=== PATIENT | male | born 1955 | race African-American/Black ===

== ENCOUNTER → 2017-02-24 | Outpatient (CLI) | payer OTHER ==
[~2017-02-24] MED LIST: ADVIL PM CAPLE1 EACH PO; CELEXA20 MG PO; MIDODRINE HCL 55 M1 PO; NORCO 5-325 TA1 EACH PO; OMEPRAZOLE40 MG PO; PERCOCET PO; PROAIR HFA8.5 GM INH; SYMBICORT160 MCG/4. INH; TRAMADOL 50 MG50 MG PO
== END | disposition home or self-care (01) ==
LOC: SPEC 10:47
DX: I70.8 Atherosclerosis of other arteries (principal); J45.909 Unspecified asthma, uncomplicated; F32.9 Major depressive disorder, single episode, unspecified; K21.9 Gastro-esophageal reflux disease without esophagitis

== ENCOUNTER → 2017-05-18 | Outpatient (CLI) | payer OTHER ==
[2017-05-18 09:09] LABS: CREATININE 0.8 mg/dL (0.7-1.3)
== END ==
LOC: CAT 08:20
PROVIDERS: Family Medicine
DX: R10.32 Left lower quadrant pain (principal)

== ENCOUNTER → 2017-05-29 | Outpatient (CLI) | payer OTHER | LOC: MRI 06:58 | DX: R19.00 Intra-abdominal and pelvic swelling, mass and lump, unspecified site (principal) ==

== ENCOUNTER → 2017-06-16 | Outpatient (CLI) | payer OTHER ==
[~2017-06-16] VITALS: Ht 175.3 cm; Wt 79.4 kg
[~2017-06-16] MED LIST changes: +CHANTIX1 MG PO; +HYDROCODONE-APA1 TA1 PO; +TRAZODONE HCL50 MG PO
--- NOTE | ~2017-06-16 | S ---
[facility] [place] [place] [address] SURGICAL PATH RPT PROCEDURE Name: IGOR REESE Room #: REG ASHLEY Sloan.Carolyn.#: [id number] Admission: 06/16/17 Date of : 57 Discharge: Report #: [id number] Path Case #: [id number] PATHOLOGY REPORT COLLECTION DATE: 06/16/2017 RECEIVED DATE: 06/16/2017 SUBMITTING PHYS: Dr. Kenny Bearden OTHER PHYS: Dr. Gabriel Mitchell SPECIMEN(S) RECEIVED: A.Bx of polyp at hepatic flexure B.Bx of polyp at sigmoid x2 * * * * * * * * * * * * FINAL DIAGNOSIS: A. Polyp, at hepatic flexure, endoscopic biopsy: - Tubular adenoma. - Negative for high grade dysplasia. B. Polyp, at sigmoid, endoscopic biopsy: - Compatible with a hyperplastic polyp. - Negative for dysplasia. (IUV:db; 06/18/2017) PATHOLOGIST: Мария Thacker M.D. REPORT ELECTRONICALLY SIGNED BY: Мария Thacker M.D. DATE/TIME: 06/18/2017 14:53 * * * * * * * * * * * * GROSS PATHOLOGY: A. Received in formalin labeled "Igor Reese, polyp at hepatic flexure," are 2 segments of askew soft tissue measuring 0.9 x 0.2 x 0.2 cm in aggregate dimensions and ranging from 0.4 to 0.5 cm in maximum dimension. The specimen is submitted entirely in cassette A1. B. Received in formalin labeled "Igor Reese, BX of polyp at sigmoid," are 3 segments of askew soft tissue measuring 0.9 x 0.2 with 0.2 cm in aggregate dimensions and ranging from 0.2 to 0.5 cm in maximum dimension. The specimen is submitted entirely in cassette B1. (ALIZA; 06/17/2017) CLINICAL HISTORY: Screening INITIAL CPT CODE(S): A; 28448 B; [address] [facility] [place] [address] SURGICAL PATH RPT PROCEDURE Name: IGOR REESE Room #: REG [facility] M..#: [id number] Admission: 06/16/17 Date of : 57 Discharge: Report #: [id number] Path Case #: [id number] Professional services performed by [facility] at [place] [address] [address], [place] [address] Technical services performed by [facility] at [address] [place] [address], [address], [place] [address]. [facility] [address] [address] PHONE: [phone] DIRECTOR: Gumaro Hilario M.D. * * * END OF REPORT * * *
== END | disposition home or self-care (01) ==
LOC: GI 07:45
DX: Z12.11 Encounter for screening for malignant neoplasm of colon (principal); D12.3 Benign neoplasm of transverse colon; K63.5 Polyp of colon; K64.8 Other hemorrhoids; K21.9 Gastro-esophageal reflux disease without esophagitis; J45.909 Unspecified asthma, uncomplicated; B19.20 Unspecified viral hepatitis C without hepatic coma; F17.210 Nicotine dependence, cigarettes, uncomplicated; F32.89 Other specified depressive episodes; Z98.890 Other specified postprocedural states; Z95.5 Presence of coronary angioplasty implant and graft
CPT/HCPCS: 62110; 62900

== ENCOUNTER 2018-05-11 13:24 | Inpatient (IN) | payer OTHER ==
[~2018-05-11] VITALS: Ht 175.3 cm; Wt 69.9 kg
--- NOTE | ~2018-05-11 | EKG ---
[address] [address] ELECTROCARDIOGRAM REPORT Name: MARY ANNYUVAL Room #: 215-P ADM IN M.R.#: [id number] Admission: 05/11/18 Attend Phys: Marlon Damico MD Discharge: Date of : 57 Report #: [id number] THIS REPORT FOR: //name// [facility] Test Date: 2018-05-11 Test Time: 20:37:07 Pat Name: YUVAL REESE Department: Room: 215 P Gender: M Uniform Force Captain: Sloan VAUGHAN : 1955 Requested By: Marlon Damico Order Number: [id number] MD: Conor Lauren Measurements Intervals [place] Rate: 63 P: 31 NV: 188 QRS: 30 QRSD: 88 T: 51 QT: 415 QTc: 425 Interpretive Statements Sinus rhythm Right ventricular conduction delay Baseline wander in lead(s) V6 No previous ECG available for comparison Electronically Signed On 05-12-2018 8:07:02 CDT by Conor Lauren [email or web address] <ELECTRONICALLY SIGNED> By: Conor Lauren MD, [facility] 05/12/1807 36 36 Conor Lauren MD, FACC /EPI
--- NOTE | ~2018-05-11 | EKG ---
[place] [address] [facility] [place] [address] ELECTROCARDIOGRAM REPORT Name: DIANACRISTYYUVAL Room #: 215-P ADM IN M.R.#: [id number] Admission: 05/11/18 Attend Phys: Marlon Damico MD Discharge: Date of : 57 Report #: [id number] THIS REPORT FOR: //name// [facility] ED Test Date: 2018-05-11 Test Time: 13:28:24 Pat Name: YUVAL REESE Department: Room: Gender: M Electronic Commerce Specialist: DAPHNECARLOS : 1955 Requested By: Rosy Cheema Order Number: [id number] MD: Conor Lauren Measurements Intervals [place] Rate: 66 P: 56 [place]: 192 QRS: 13 QRSD: 91 T: 56 QT: 400 QTc: 420 Interpretive Statements Sinus rhythm Right ventricular conduction delay No previous ECG available for comparison Electronically Signed On 05-12-2018 8:02:57 CDT by Conor Lauren [email or web address] <ELECTRONICALLY SIGNED> By: Conor Lauren MD, [facility] 05/12/18 0802 1328 1328 Conor Lauren MD, FACC /EPI
[2018-05-11 13:43] VITALS: BP 108/75
[2018-05-11 14:14] LABS: ABSOLUTE NEUTROPHILS 4.2 thou/uL (1.4-8.2); BASOPHILS 0.9 % (0.0-2.0); EOSINOPHILS 2.4 % (0.0-3.0); HEMATOCRIT 42.5 % (42.0-52.0); HEMOGLOBIN 14.7 gm/dL (14.0-18.0); LYMPHOCYTES 35.5 % (24.0-44.0); MCH 30.4 pg (26.0-34.0); MCHC 34.7 g/dL (28.0-37.0); MCV 87.6 fL (80.0-100.0); MONOCYTES 7.9 % (1.0-8.0); PLATELET COUNT 211 thou/uL (150-400); POLYS 53.3 % (36.0-66.0); RBC 4.86 mil/uL (4.50-6.00); RDW 12.6 % (10.5-14.5)
[2018-05-11 14:25] LABS: ANION GAP 6 mmol/L (7-16); BUN 17 mg/dL (7-18); CALCIUM 9.7 mg/dL (8.5-10.1); CHLORIDE 97 mmol/L (98-107); CO2 25 mmol/L (21-32); POTASSIUM 5.1 mmol/L (3.5-5.1); SODIUM 128 mmol/L (136-145)
[2018-05-11 14:28] LABS: APTT 25.5 Seconds (24.5-32.8); INR 1.1; PROTIME 11.3 Seconds (9.3-11.4)
[2018-05-11 14:30] LABS: TROPONIN-I < 0.04 ng/mL (<0.06)
[2018-05-11 14:38] LABS: GLUCOSE 539 mg/dL (74-106)
[2018-05-11] MEDS ORDERED: PLAVIX 75 MG TA75 M1 PO (14:38)
[2018-05-11] MEDS ORDERED: GLUCOPHAGE XR500 MG PO (14:40)
[2018-05-11 15:39] VITALS: BP 98/61
[2018-05-11 15:59] VITALS: BP 99/66
[2018-05-11 16:07] VITALS: BP 101/68
[2018-05-11] MEDS ORDERED: ADVIL PM LIQUI1 EACH PO (17:28)
[2018-05-11] MEDS ORDERED: ASPIR 8181 MG PO (17:34)
[2018-05-11 20:15] VITALS: BP 112/65
[2018-05-11 23:55] VITALS: BP 127/72
[2018-05-12 02:23] LABS: ABSOLUTE NEUTROPHILS 4.3 thou/uL (1.4-8.2); BASOPHILS 0.5 % (0.0-2.0); EOSINOPHILS 2.6 % (0.0-3.0); HEMATOCRIT 40.2 % (42.0-52.0); HEMOGLOBIN 13.7 gm/dL (14.0-18.0); LYMPHOCYTES 39.5 % (24.0-44.0); MCH 29.6 pg (26.0-34.0); MCHC 34.2 g/dL (28.0-37.0); MCV 86.4 fL (80.0-100.0); MONOCYTES 8.2 % (1.0-8.0); PLATELET COUNT 192 thou/uL (150-400); POLYS 49.2 % (36.0-66.0); RBC 4.65 mil/uL (4.50-6.00); RDW 12.7 % (10.5-14.5); WBC 8.7 thou/uL (4.0-11.0)
[2018-05-12 02:38] LABS: BUN 15 mg/dL (7-18); CALCIUM 8.3 mg/dL (8.5-10.1); CHLORIDE 102 mmol/L (98-107); CHOLESTEROL 119 mg/dL (<200); CO2 28 mmol/L (21-32); CREATININE 0.9 mg/dL (0.7-1.3); GLUCOSE 250 mg/dL (74-106); HDL CHOLESTEROL 29 mg/dL (>40); LDL CHOLESTEROL 52 mg/dL (<100); MAGNESIUM 1.7 mg/dL (1.8-2.4); TC:HDL 4.1 Ratio (Not establshd); TRIGLYCERIDE 192 mg/dL (<150); VLDL 38 mg/dL (<40)
[2018-05-12 02:42] LABS: ANION GAP 6 mmol/L (7-16); POTASSIUM 3.8 mmol/L (3.5-5.1); SODIUM 136 mmol/L (136-145)
[2018-05-12 02:43] LABS: SERUM ASSESSMENT Slight Lipemia
[2018-05-12 04:55] VITALS: BP 133/74
[2018-05-12 05:09] LABS: GLYCOHEMOGLOBIN (HGB A1C) 11.3 % (4.8-5.6)
[2018-05-12 07:19] VITALS: BP 153/92
[2018-05-12 09:53] LABS: URINE BILIRUBIN NEGATIVE (Negative); URINE BLOOD NEGATIVE (Negative); URINE CLARITY CLEAR; URINE COLOR YELLOW; URINE GLUCOSE-RANDOM* 2+ (Negative); URINE KETONES NEGATIVE (Negative); URINE LEUKOCYTES-REFLEX NEGATIVE (Negative); URINE NITRITE-REFLEX NEGATIVE (Negative); URINE PROTEIN (DIPSTICK) NEGATIVE (Negative); URINE SPECIFIC GRAVITY 1.015 (1.005-1.035)
[2018-05-12 11:07] VITALS: BP 123/85
[2018-05-12] MEDS ORDERED: GLYBURIDE 5 MG T5 M1 PO (15:06)
[2018-05-12 15:07] VITALS: BP 132/70
[2018-05-12 15:22] VITALS: BP 123/85
== END 2018-05-12 15:56 | disposition home or self-care (01) | DRG 313 ==
LOC: ER 13:24 → EROBS 15:18 → 2N 15:18 → EROBS 16:00 → 2N 16:07 → ENTRNSPT 05-12 15:49 → 2N 05-12 15:56
PROVIDERS: Emergency Medicine; Nurse Practitioner
DX: R07.9 Chest pain, unspecified (principal); E87.1 Hypo-osmolality and hyponatremia; E78.5 Hyperlipidemia, unspecified; I25.10 Atherosclerotic heart disease of native coronary artery without angina pectoris; I10 Essential (primary) hypertension; E11.65 Type 2 diabetes mellitus with hyperglycemia; F17.210 Nicotine dependence, cigarettes, uncomplicated; Z95.5 Presence of coronary angioplasty implant and graft; Z83.3 Family history of diabetes mellitus; Z82.49 Family history of ischemic heart disease and other diseases of the circulatory system; I73.9 Peripheral vascular disease, unspecified; I95.9 Hypotension, unspecified; K21.9 Gastro-esophageal reflux disease without esophagitis; Z71.6 Tobacco abuse counseling
CPT/HCPCS: 10194

== ENCOUNTER → 2019-03-09 | Outpatient (CLI) | payer OTHER ==
[~2019-03-09] MED LIST changes: +ADVIL PM LIQUI1 EACH PO; +ASPIR 8181 MG PO; +GLUCOPHAGE XR500 MG PO; +GLYBURIDE 5 MG T5 M1 PO; +PLAVIX 75 MG TA75 M1 PO
--- NOTE | 2019-03-14 19:48 | SLE ---
[facility] [place] [address] POLYSOMNOGRAPHY STUDY Name: YUVAL REESE Room #: REG DANN Simmons.#: [id number] Admission: 03/09/19 ������������������ Attend Phys: Danny Muhammad MD Discharge: ������������������ Date of : 57 Report #: [id number] THIS REPORT FOR: //name// CC: Danny Johnson MD DATE OF SERVICE: 03/09/2019 ATTENDING PHYSICIAN: Dr. Matheus Johnson. The patient is 63 years old who weighs 168 pounds with a BMI of 24.8. The patient's Empire score was 8. The patient underwent a sleep study performed at [facility]. During the night study, the patient spent 467 minutes in bed and slept for 259 minutes with a low sleep efficiency of 55%. Sleep latency was 73 minutes, which was prolonged with an absent REM sleep. Overall, sleep architecture showed increased stage 1 sleep, reduced stage 2 sleep, absent N3 and absent REM sleep. During the night study, the patient had no apneas and there were 29 hypopneas. The patient's apnea hypopnea index was 6.7 per hour with an absent REM index due to lack of REM sleep. Supine AHI was 12 per hour. EKG monitoring revealed an average heart rate of 72 beats per minute, normal sinus rhythm. No arrhythmias observed. No PLMS seen. Nocturnal oximetry study revealed an average oxygen saturation of 90% with a lowest of 85%. Forty four minutes were spent in oxygen saturation of less than 89%. IMPRESSION: 1. Mild sleep apnea-hypopnea syndrome with an AHI of 6.7 per hour. 2. Nocturnal hypoxia secondary to obstructive sleep apnea and hypoventilation. 3. No clinically significant PLMS. RECOMMENDATIONS: 1. The patient did not meet the criteria for CPAP initiation. If patient has co-morbid conditions, then patients mild sleep apnea can be treated with either oral appliance or CPAP. 2. Avoid ELECTRICAL ENGINEER MEP depressants. 3. The patient's sleep efficiency was reduced and was related to sleep onset and sleep maintenance insomnia. If this is a chronic condition then it can [facility] [address] [place] [address] POLYSOMNOGRAPHY STUDY Name: YUVAL REESE [facility] [id number] Admission: 03/09/19 ������������������ Attend Phys: Danny Muhammad MD Discharge: ������������������ Date of : 57 Report #: [id number] contribute to the patient's daytime somnolence. It should be further evaluated and treated according to the etiology. 4. Caution regarding driving until the patient's hypersomnia is resolved with the above recommendations. ��������������������������������������������� <ELECTRONICALLY SIGNED> ���������������������������������������� By: Danny Muhammad MD ��������������������������������������������� 03/14/19 1948 0736 0853 Danny Muhammad MD /nt
== END ==
LOC: SLEEPLAB 03-03 12:25
DX: G47.33 Obstructive sleep apnea (adult) (pediatric) (principal); R09.02 Hypoxemia

== ENCOUNTER → 2020-01-05 | Outpatient (CLI) | payer OTHER ==
[~2020-01-05] VITALS: Ht 172.7 cm; Wt 70.1 kg
[~2020-01-05] MED LIST changes: +CARVEDILOL25 MG PO; -CELEXA20 MG PO; +CYMBALTA60 MG PO; +FLOMAX0.4 MG PO; -GLUCOPHAGE XR500 MG PO; +GLUCOPHAGE1000 MG PO; +IMDUR 30 MG TAB30 M1 PO; +LIPITOR 20 MG T20 M1 PO; +LUNESTA3 MG PO; +MONTELUKAST SODIUM PO; +NEURONTIN100 MG PO; +RANITIDINE HCL300 MG PO; +TRELEGY ELLIPT1 EACH SUBQ
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
[2020-01-05 15:50] VITALS: BP 100/74
--- NOTE | 2020-01-05 16:22 | NUR ---
Pain Clinic Assessment: 1. History of Osteoarthritis: Not Applicable History of Rheumatoid Arthritis: Not Applicable 2. Height: 5 ft. 8 in. 172.7 cm. Weight: 154.6 lb. oz. 70.126 kg. Patient's BMI: 23.5 3. Vital Signs: BP: 100/74 Pulse: 80 Resp: 14 Temp: 02 Sat: 96 ECG Mon: 4. Pain Intensity: 7 5. Fall Risk: Dizziness: Y Needs help standing or walking: N Fallen in the last 3 months: Y Fall risk comments: 6. Patient on Blood Thinner: Clopidogrel Bisulf(Plavix 7. History of Hypertension: Y 8. Opioid Therapy greater than 6 weeks: Y Opiate Contract Signed: 9. Risk Assessment Tool Provided: 10. Functional Assessment Tool: 11. Recreational Drug Use: Never Drug Type: Tobacco Use: Current Every Day Smoker Tobacco Type: Cigarettes Amount or Packs/day: 3/4 How Many Years: 20 Alcohol Use: No Frequency: Quant:
== END ==
LOC: PAIN 07:05
DX: M54.6 Pain in thoracic spine (principal); M54.9 Dorsalgia, unspecified; M25.511 Pain in right shoulder; M25.512 Pain in left shoulder; G89.29 Other chronic pain; F32.89 Other specified depressive episodes; F41.9 Anxiety disorder, unspecified; G47.00 Insomnia, unspecified; E11.9 Type 2 diabetes mellitus without complications; I10 Essential (primary) hypertension; F17.210 Nicotine dependence, cigarettes, uncomplicated; Z86.59 Personal history of other mental and behavioral disorders; Z98.890 Other specified postprocedural states

== ENCOUNTER → 2020-01-19 | Outpatient (CLI) | payer OTHER ==
[~2020-01-19] VITALS: Ht 172.7 cm; Wt 69.7 kg
[2020-01-19 15:12] VITALS: BP 105/72
--- NOTE | 2020-01-19 15:21 | NUR ---
Pain Clinic Assessment: 1. History of Osteoarthritis: Not Applicable History of Rheumatoid Arthritis: Not Applicable 2. Height: 5 ft. 8 in. 172.7 cm. Weight: 153.6 lb. oz. 69.672 kg. Patient's BMI: 23.4 3. Vital Signs: BP: 105/72 Pulse: 78 Resp: 14 Temp: 02 Sat: 98 ECG Mon: 4. Pain Intensity: 7 5. Fall Risk: Dizziness: N Needs help standing or walking: N Fallen in the last 3 months: N Fall risk comments: 6. Patient on Blood Thinner: Clopidogrel Bisulf(Plavix 7. History of Hypertension: Y 8. Opioid Therapy greater than 6 weeks: Y Opiate Contract Signed: 9. Risk Assessment Tool Provided: 10. Functional Assessment Tool: 11. Recreational Drug Use: Never Drug Type: Tobacco Use: Current Every Day Smoker Tobacco Type: Amount or Packs/day: How Many Years: Alcohol Use: No Frequency: Quant:
--- NOTE | 2020-01-26 14:30 | HPC ---
[facility] [place] [address] PAIN MANAGEMENT CONSULTATION Name: YUVAL REESE Room #: REG DANN LisaBradfordCarolyn.#: [id number] Admission: 01/19/20 Attend Phys: Cody Aldana MD Discharge: Date of : 57 Report #: [id number] THIS REPORT FOR: cc: Gabriel Mitchell James A. DO Morgan, Richard L. MD ~ THIS REPORT FOR: //name// CC: Gabriel Andujar DATE OF SERVICE: 01/19/2020 PROCEDURE NOTE PROCEDURE: Epidural steroid injection L4-L5 under fluoroscopic guidance. INDICATIONS FOR PROCEDURE: Chronic intractable low back pain. Neurogenic claudication. DESCRIPTION OF PROCEDURE: After informed consent, he was taken to the fluoroscopic suite, placed prone, skin prepped with ChloraPrep. Skin anesthetized over the L4-L5 interspace. A 20-gauge Tuohy epidural needle advanced first attempt into the epidural space with loss of resistance technique. There was no blood or CSF aspirated. A 1 mL of Omnipaque was injected. Good spread of dye observed in the epidural space. This was then followed by 3 mL of 0.5% lidocaine mixed with 60 mg of triamcinolone. Slight reduction due to his diabetes. The needle was removed and was taken to recovery room for observation. We will follow up over the next month or so to look for some sustained improvement in his leg pain. <ELECTRONICALLY SIGNED> By: Cody Aldana MD 01/26/20 1430 1601 2308 Cody Aldana MD /nt
== END | disposition home or self-care (01) ==
LOC: PAIN 06:55
DX: M54.5 Low back pain (principal); G89.29 Other chronic pain; M48.062 Spinal stenosis, lumbar region with neurogenic claudication; E11.9 Type 2 diabetes mellitus without complications; F17.200 Nicotine dependence, unspecified, uncomplicated; Z98.890 Other specified postprocedural states; Z79.899 Other long term (current) drug therapy; Z79.891 Long term (current) use of opiate analgesic

== ENCOUNTER 2020-02-17 10:28 | Observation (INO) | payer OTHER ==
[2020-02-17] VITALS (9 sets, daily range): BP systolic 117–140; BP diastolic 81–91
[~2020-02-17] VITALS: Ht 205.7 cm; Wt 67.6 kg
[~2020-02-17 10:28] MED LIST changes: +ASPIR 8181 M1 PO; +CHANTIX0.5 MG PO; +LOTRISONE CREAM15 GM; +TRELEGY ELLIPT1 EACH; +TRULICITY1.5 MG/0.5
[2020-02-17 11:20] LABS: HEMATOCRIT 46.2 % (42.0-52.0); HEMOGLOBIN 15.8 gm/dL (14.0-18.0); MCH 30.7 pg (26.0-34.0); MCHC 34.2 g/dL (28.0-37.0); MCV 89.8 fL (80.0-100.0); RBC 5.15 mil/uL (4.50-6.00); RDW 13.5 % (10.5-14.5); WBC 10.8 thou/uL (4.0-11.0)
[2020-02-17 11:32] LABS: CALCIUM 9.1 mg/dL (8.5-10.1); CREATININE 0.8 mg/dL (0.7-1.3); POTASSIUM 3.9 mmol/L (3.5-5.1)
[2020-02-17 11:33] LABS: PROTIME 10.7 Seconds (9.3-11.4)
[2020-02-17 11:38] LABS: ALBUMIN 3.3 g/dL (3.4-5.0); TOTAL BILIRUBIN 0.5 mg/dL (<0.1-1.0); TOTAL PROTEIN 7.8 g/dL (6.4-8.2)
[2020-02-17] MEDS ORDERED: XARELTO20 MG PO (14:40)
--- NOTE | 2020-02-17 20:56 | NUR ---
arrived post heart cath and left lower extremity stent placement. vital signs monitored as per protocol as well as left groin status checks, left lower extremity pulses all w/o complication. d/c after seen by .
--- NOTE | 2020-02-20 14:29 | CATHLAB ---
[facility] [place] [address] [place] [address] INVASIVE PROCEDURE REPORT Name: YUVAL REESE Room #: 217-P [facility] Jordno Pedersen#: [id number] Admission: 02/17/20 Attend Phys: Enrike Barron MD, Discharge: 02/17/20 Date of : 57 Report #: [id number] THIS REPORT FOR: cc: Gabriel Mitchell James A. DO Mancuso, Gerald M. MD [facility] ~ APPROVED REPORT Study performed: 02/17/2020 14:01:19 Patient Details Patient Status: Out-Patient Room #: The patient is a 64 year-old male Event Personnel Enrike Barron Oracle Application Consultant, Jesu Escamilla RN, Jesu Escamilla RN, Aimee Pearson RTR, RODO Randall, Estuardo Abernathy RTR Monitor Procedures Performed Art Access - L femoral artery* Left Heart Cath w/or w/o Coronaries [id number] [facility] Hemostasis w/ Mynx 71379 Initial Mod Sed Same Phys/QHP Gr5y [id number] Mod Sed Same Phys/QHP Ea [id number] Indication Positive stress test Procedure Narrative A 6F Brite tip sheath was inserted into the LFA^. Coronary angiography was performed using coronary diagnostic catheters. The right coronary system was accessed and visualized with a JR4 catheter. The left coronary system was accessed and visualized with a JL4 catheter. The left ventricle was accessed and visualized with a pigtail catheter. Left ventriculogram was performed in 30 degree projection. Closure device was deployed with a 6 Fr MYNXGRIP 6/7F #[id number]. The patient tolerated the procedure well and there were no complications associated with the procedure. There was no hematoma. Intraoperative Conscious Sedation Sedation start time: 12:28 Case end Time: 14:56 Fentanyl 200 mcg Versed 3 mg [facility] [place] [address] INVASIVE PROCEDURE REPORT Name: YUVAL REESE Room #: 217-P [facility] IN M.R.#: [id number] Admission: 02/17/20 Attend Phys: Enrike Barron, Discharge: 02/17/20 Date of : 57 Report #: [id number] Conscious sedation is a total for peripheral procedure and left heart cath. Fluoro time and dose are a total for peripheral procedure and left heart cath. Omnipaque used 30ml. Contrast total is a total for peripheral procedure and left heart cath. Omnipaque-30ml Fluoro Time: 12.92 minutes Dose: DAP 80912.00 cGycm2 651 mGy Contrast Type and Amount: Visipaque 147 ml Hemodynamics The aortic pressure is 153/82 mmHg with a mean of 110 mmHg. The left ventricular pressure is 150 mmHg with a mean of mmHg. The left ventricular end diastolic pressure is 25 mmHg. PCI Technique Lesion Percutaneous coronary intervention was performed on the Superficial Femoral. Conclusion #1. Normal left ventricular size and systolic function EF 60%. #2 left main mild ostial disease otherwise widely patent giving rise to LAD and circumflex #3 LAD with mild diffuse disease that extends around the apex. No occlusive disease #4 circumflex OM is dominant system with only mild irregularities. #5 nondominant right coronary artery is small and attenuated vessel no indication for intervention. It is supplying a limited area of the inferior wall with very small twiglike vessels. Recommendations and plan continue aggressive risk factor modification. No indication for coronary intervention. See Dr. Marshall's peripheral dictation. <ELECTRONICALLY SIGNED> By: Enrike Barron MD, FACC 02/20/20 1428 1428 1428 Enrike Barron MD, FACC /INF
== END 2020-02-17 20:05 | disposition home or self-care (01) ==
LOC: CATH 10:28 → 2N 16:50
PROVIDERS: Nuclear Medicine Nuclear Cardiology; ADMIT Internal Medicine Cardiovascular Disease
DX: I25.10 Atherosclerotic heart disease of native coronary artery without angina pectoris (principal); I73.9 Peripheral vascular disease, unspecified

== ENCOUNTER → 2020-02-24 | Outpatient (CLI) | payer OTHER ==
[~2020-02-24] MED LIST changes: +XARELTO20 MG PO
== END ==
LOC: SJCVCIMAG 08:58
DX: I73.9 Peripheral vascular disease, unspecified (principal)

== ENCOUNTER → 2020-05-28 | Outpatient (CLI) | payer OTHER | LOC: SJCVCIMAG 09:42 | PROVIDERS: ATTEND Nuclear Medicine Nuclear Cardiology | DX: I65.23 Occlusion and stenosis of bilateral carotid arteries (principal); I70.201 Unspecified atherosclerosis of native arteries of extremities, right leg; M79.605 Pain in left leg; Z95.820 Peripheral vascular angioplasty status with implants and grafts ==

== ENCOUNTER → 2020-06-22 | Outpatient (CLI) | payer OTHER ==
[~2020-06-22] MED LIST changes: +ACETAMINOPHEN325 M1 PO; +COLACE 100 MG100 MG PO; +FAMOTIDINE 40 M40 M1 PO; +IBUPROFEN 200200 M1 PO; +MIRALAX17 GM PO; +OXYCODONE HCL 55 MG PO; +TAMSULOSIN HCL0.4 MG PO; -TRELEGY ELLIPT1 EACH; +TRELEGY ELLIPT1 EACH INH; -TRULICITY1.5 MG/0.5; +TRULICITY1.5 MG/0.5 SUBQ
== END ==
LOC: LAB 11:47 → EDBD 11:47
PROVIDERS: ATTEND Student in an Organized Health Care Education/Training Program
DX: Z01.818 Encounter for other preprocedural examination (principal); Z11.59 Encounter for screening for other viral diseases

== ENCOUNTER 2020-06-26 10:21 | Observation (INO) | payer OTHER ==
[~2020-06-26] VITALS: Ht 175.3 cm; Wt 63.5 kg
[2020-06-26] VITALS (7 sets, daily range): BP systolic 100–133; BP diastolic 60–86
[~2020-06-26 10:21] MED LIST changes: -ACETAMINOPHEN325 M1 PO; -COLACE 100 MG100 MG PO; -IBUPROFEN 200200 M1 PO; -MIRALAX17 GM PO; -OXYCODONE HCL 55 MG PO
[2020-06-26 11:03] LABS: HEMATOCRIT 45.6 % (42.0-52.0); HEMOGLOBIN 15.3 gm/dL (14.0-18.0); MCH 29.1 pg (26.0-34.0); MCHC 33.5 g/dL (28.0-37.0); MCV 86.8 fL (80.0-100.0); RBC 5.25 mil/uL (4.50-6.00); RDW 12.6 % (10.5-14.5); WBC 8.9 thou/uL (4.0-11.0)
[2020-06-26 11:14] LABS: CREATININE 0.7 mg/dL (0.7-1.3); POTASSIUM 4.3 mmol/L (3.5-5.1)
[2020-06-26 11:20] LABS: ALBUMIN 3.8 g/dL (3.4-5.0); TOTAL BILIRUBIN 0.7 mg/dL (0.2-1.0); TOTAL PROTEIN 7.8 g/dL (6.4-8.2)
[2020-06-26] MEDS ORDERED: ACETAMINOPHEN325 M1 PO (12:22)
[2020-06-26] MEDS ORDERED: MIRALAX17 GM PO (12:22)
[2020-06-26] MEDS ORDERED: IBUPROFEN 200200 M1 PO (12:22)
[2020-06-26] MEDS ORDERED: OXYCODONE HCL 55 MG PO (12:22)
[2020-06-26] MEDS ORDERED: COLACE 100 MG100 MG PO (12:22)
--- NOTE | 2020-06-26 16:12 | NUR ---
PT IS HERE FOR [facility] LOCO. CM REVIEWED CHART. PT LIVES IN AN APT WITH HIS . HE REPORTS THEY HAVE ELEVATOR ACCESS SO HE DOES NOT HAVE TO USE STEPS. PT REPORTS HE IS INDEPENDENT WITH AMBULATION. PT STATES HE DOES HAVE A WALKER AT HOME THEY DO NOT USE. PT REPORTS HE HAS NOT HAD HH OR BEEN TO SNF BEFORE. PT REPORTS HE HAS GONE TO OUTPATIENT THERAPY BEFORE BACK IN 2016 BUT UNSURE THE NAME. PT REPORTS HE DOES NOT FEEL HE WILL HAVE ANY NEEDS FROM CM AT DISCHARGE. CM WILL CONTINUE TO FOLLOW TO ASSIST NEEDED.
--- NOTE | 2020-06-26 16:25 | NUR ---
PT ARRIVED TO FLOOR AROUND 1455. ALERT AND ORIENTED. C/O PAIN AND FEELING "BLOATED", REQ KATERIN CRACKERS. TOLERATING CRACKERS, PAIN MEDS GIVEN ORDERED. UP TO TOILET WITH SBA. VOIDING WELL. NO GAS OR BM. PIV SL. 4 SITES ON ABDOMEN C/D/I. SLIGHT AMOUNT OF SWELLING. ABDOMEN SOFT. PT STEADY ON FEET, EDUCATED TO CALL WHEN NEEDS ARISE. CALL LIGHT IN REACH. WILL CONTINUE TO MONITOR
--- NOTE | 2020-06-26 21:59 | NUR ---
Pt takes lunesta qhs for sleep at home. Our pharmacy carries ambien. Pt okay with taking ambien tonight. Dr Beal notified about need for sleep aide.
[2020-06-27 08:29] VITALS: BP 106/70
--- NOTE | 2020-06-27 09:41 | NUR ---
on-going assessment: pt discharged home today, no needs.
--- NOTE | 2020-06-27 10:42 | NUR ---
ASSUMING CARE A&OX4 VSS, PAIN CONTROLLED WITH PAIN MEDS, AMBULATING IN THE ROOM, 4 SURGICAL SITES CDI, PT RECEIVED DISCHARGE INSTRUCTIONS, IV REMOVED, PT TRANSFERRED TO LOBBY BY WHEELCHAIR.
--- NOTE | 2020-06-28 18:06 | PATH ---
[facility] [address] [place] [address] PATHOLOGY RPT PROCEDURE Name: YUVAL REESE Room #: 434-P SARAH Ruvalcaba MSergio#: [id number] Admission: 06/26/20 Date of : [birth year] Discharge: 06/27/20 Report #: [id number] Path Case #: [id number] LCA Accession Number: [id number] . 01 Material submitted: . gallbladder - GALLBLADDER . 01 Clinical history: . Cholelithiasis . 02 Diagnosis: Gallbladder, cholecystectomy: - Mild chronic cholecystitis. - Reactive incidental lymph node. (IUV:pit 06/28/2020) QTP 06/28/2020 1356 Local . 02 Electronically signed: . Мария Thacker MD, Pathologist NPI- [id number] . 01 Gross description: . The specimen is received in formalin, labeled "Yuval Cobbins, gallbladder". Received is an intact gallbladder measuring 6.8 x 2.7 x 1.0 cm in greatest dimensions displaying a pink-roca serosal surface. Opening the specimen reveals a velvety, light askew mucosa with a gallbladder wall thickness of 0.1 cm. Calculi are not present upon filtration of the gallbladder and specimen container, and no masses or lesions are noted grossly. Toward the proximal margin, a single lymph node is identified measuring 0.5 cm in maximum dimensions. Cv/Cvn Cv Tsc System Operator sections, to include the proximal margin and bisected lymph node, are submitted in cassette A1. (CAA; 06/27/2020) QAC/QAC 06/28/2020 1355 Local . 02 Pathologist provided ICD-10: K81.1 . 02 CPT . 273734 Specimen Comment: A courtesy copy of this report has been sent to [phone] Specimen Comment: [phone] Specimen Comment: Report sent to / DR BAZAN Performed at: [address], [place] [id number] [place] [address] PATHOLOGY RPT PROCEDURE Name: YUVAL REESE Room #: 434-P SARAH Pedersen#: [id number] Admission: 06/26/20 Date of : [birth year] Discharge: 06/27/20 Report #: [id number] Path Case #: [id number] MD Vick House MD Phone: [phone] Performed at: [address] [id number] MD Мария Thacker MD Phone: [phone]
== END 2020-06-27 09:15 | disposition home or self-care (01) ==
LOC: OR 10:21 → 4S 12:44 → EDSTATUS 12:44 → OR 15:19 → 4S 15:19 → OR 15:38 → EDBD 06-27 09:15 → 4S 06-27 09:15 → OR 06-27 09:15 → 4S 06-27 09:15
PROVIDERS: ADMIT Surgery; ATTEND Surgery
DX: K81.9 Cholecystitis, unspecified (principal); K74.60 Unspecified cirrhosis of liver; E11.9 Type 2 diabetes mellitus without complications; E78.5 Hyperlipidemia, unspecified; F17.290 Nicotine dependence, other tobacco product, uncomplicated; Z79.899 Other long term (current) drug therapy
CPT/HCPCS: 10102; 50010; 50101; 50249; 50411; 50555; 50558; 51489; 52265; 52266; 52287; 53307; 53310; 53312; 54022; 54118; 55245; 56462; 56525; 56526; 62110; 62900; 70005

== ENCOUNTER → 2020-07-04 | Outpatient (CLI) | payer OTHER ==
[~2020-07-04] MED LIST changes: +ACETAMINOPHEN325 M1 PO; +COLACE 100 MG100 MG PO; +IBUPROFEN 200200 M1 PO; +MIRALAX17 GM PO; +OXYCODONE HCL 55 MG PO
[2020-07-04 10:59] LABS: BASOPHILS 0.7 % (0.0-2.0); HEMATOCRIT 46.8 % (42.0-52.0); HEMOGLOBIN 15.5 gm/dL (14.0-18.0); LYMPHOCYTES 25.4 % (24.0-44.0); MCH 28.8 pg (26.0-34.0); MCV 87.4 fL (80.0-100.0); MONOCYTES 10.9 % (1.0-8.0); PLATELET COUNT 281 thou/uL (150-400); RBC 5.36 mil/uL (4.50-6.00); WBC 9.9 thou/uL (4.0-11.0)
[2020-07-04 11:31] LABS: ALBUMIN 3.8 g/dL (3.4-5.0); CALCIUM 9.3 mg/dL (8.5-10.1); CREATININE 0.7 mg/dL (0.7-1.3); POTASSIUM 4.5 mmol/L (3.5-5.1); TOTAL BILIRUBIN 0.6 mg/dL (0.2-1.0); TOTAL PROTEIN 7.9 g/dL (6.4-8.2)
== END ==
LOC: CAT 10:28
PROVIDERS: ATTEND Nurse Practitioner
DX: I70.0 Atherosclerosis of aorta (principal); R19.5 Other fecal abnormalities; M48.07 Spinal stenosis, lumbosacral region; N43.3 Hydrocele, unspecified; Z90.49 Acquired absence of other specified parts of digestive tract

== ENCOUNTER 2020-07-09 14:53 | Emergency (ER) | payer OTHER ==
[~2020-07-09] VITALS: Ht 175.3 cm; Wt 63.5 kg
[2020-07-09 16:32] LABS: HEMATOCRIT 42.7 % (42.0-52.0); HEMOGLOBIN 14.3 gm/dL (14.0-18.0); MCH 28.7 pg (26.0-34.0); MCHC 33.4 g/dL (28.0-37.0); MCV 85.9 fL (80.0-100.0); PLATELET COUNT 317 thou/uL (150-400); RBC 4.96 mil/uL (4.50-6.00); RDW 12.9 % (10.5-14.5); WBC 10.9 thou/uL (4.0-11.0)
[2020-07-09 16:41] LABS: ANION GAP 7 mmol/L (7-16); BUN 12 mg/dL (7-18); CALCIUM 8.6 mg/dL (8.5-10.1); CHLORIDE 99 mmol/L (98-107); CO2 28 mmol/L (21-32); CREATININE 0.7 mg/dL (0.7-1.3); GLUCOSE 89 mg/dL (74-106); POTASSIUM 4.7 mmol/L (3.5-5.1); SODIUM 134 mmol/L (136-145)
[2020-07-09 16:50] LABS: TROPONIN-I <0.06 ng/mL (<0.06)
[2020-07-09 17:32] LABS: ABSOLUTE NEUTROPHILS 8.9 thou/uL (1.4-8.2); PLATELET ESTIMATE NORMAL
[2020-07-09 17:59] VITALS: BP 122/74
--- NOTE | 2020-07-10 09:30 | EKG ---
[facility] [place] [address] ELECTROCARDIOGRAM REPORT Name: YUVAL REESE Room #: DEP [facility]..#: [id number] Admission: 07/09/20 Attend Phys: Discharge: 07/09/20 Date of : [birth year] Report #: [id number] THIS REPORT FOR: cc: Gabriel Mitchell James A. DO Lundgren, Craig H. MD [facility] THIS REPORT FOR: //name// [facility] ED Test Date: 2020-07-09 Test Time: 17:28:07 Pat Name: YUVAL REESE Department: Room: Gender: News Internship: Laura : 1956-08-30 Requested By: Kelley Benson Order Number: [id number] MD: Conor Lauren Measurements Intervals [place] Rate: 88 P: 72 LA: 151 QRS: 14 QRSD: 80 T: 70 QT: 326 QTc: 395 Interpretive Statements Sinus rhythm Normal tracing Compared to ECG 05/11/2018 20:37:07 No significant changes Electronically Signed On 07-10-2020 9:30:41 CDT by Conor Lauren [email or web address] <ELECTRONICALLY SIGNED> By: Conor Lauren MD, FACC 07/10/20 0930 1728 1728 Conor Lauren MD, [facility] /EPI
== END 2020-07-09 17:59 | disposition home or self-care (01) ==
LOC: ER 14:53
PROVIDERS: Physician Assistant
DX: R05 Cough (principal); R50.9 Fever, unspecified; E11.9 Type 2 diabetes mellitus without complications; I25.10 Atherosclerotic heart disease of native coronary artery without angina pectoris; K21.9 Gastro-esophageal reflux disease without esophagitis; F17.210 Nicotine dependence, cigarettes, uncomplicated; Z79.899 Other long term (current) drug therapy; Z20.828 Contact with and (suspected) exposure to other viral communicable diseases

== ENCOUNTER → 2020-07-17 | Outpatient (CLI) | payer OTHER | LOC: CAT 08:30 | PROVIDERS: ATTEND Family Medicine | DX: R91.8 Other nonspecific abnormal finding of lung field (principal); J98.4 Other disorders of lung ==

== ENCOUNTER → 2020-07-23 | Outpatient (CLI) | payer OTHER | LOC: LAB 12:27 | PROVIDERS: ATTEND Pediatrics | DX: Z01.812 Encounter for preprocedural laboratory examination (principal); Z20.828 Contact with and (suspected) exposure to other viral communicable diseases ==

== ENCOUNTER → 2020-07-27 | Outpatient (CLI) | payer OTHER ==
[~2020-07-27] MED LIST changes: +COLACE100 MG PO
--- NOTE | ~2020-07-27 | PFR/MVV ---
[facility] [place] [address] PULMONARY FUNCTION MVV/REPORT Name: YUVAL REESE Room #: REG DANN Pedersen#: [id number] Admission: 07/27/20 Attend Phys: Matheus Johnson MD Discharge: Date of : [birth year] Report #: [id number] THIS REPORT FOR: //name// >> SPIROMETRY: (BTPS) Height: 69 in cm Weight: 136 lbs kg Exam Date: 07/27/20 PRE-RX POST-RX PRED BEST %PRED BEST %PRED %CHG FVC LITERS . 4.42 . 3.53 . 80 . 3.52 . 80 . -0 FEV1 LITERS . 3.10 . 1.59 . 51 . 1.67 . 54 . 5 FEV1/FVC % . 71 . 45 . 64 . 48 . 67 . 6 WCO79-53% L/Sec . 2.97 . 0.34 . 11 . 0.41 . 14 . 22 PEF L/SEC . 8.31 . 5.42 . 65 . 4.35 . 52 . -20 FEF50/FIF50 UNITLESS . <1.00 . 0.22 . . 0.46 . . 110 MVV L/Min . 134 . 49 . 36 f 1/Min . . 140 . >> LUNG VOLUMES: (BTPS) PRE-RX POST-RX PRED AVG %PRED AVG %PRED %CHG VC Liters . 4.42 . 3.53 . 80 . . . TLC Liters . 6.39 . 6.13 . 96 . . . RV Liters . 2.34 . 2.60 . 111 . . . RV/TLC % . 38 . 42 . 112 . . . FRC [address] Liters . 3.97 . 3.28 . 83 . . . FRC N2 Liters . 3.97 . . . . . ERV Liters . 1.49 . 0.68 . 46 . . . IC Liters . 2.99 . 1.49 . 50 . . . >> DIFFUSION: DLCO ml/Min/mmHg . 19.2 . 7.6 . 40 . . . DL Gretchen ml/Min/mmHg . 19.2 . 7.6 . 40 . . . DLCO/VA ml/Min/mmHg . 3.69 . 2.46 . 67 . . . VA Liters . 6.90 . 3.08 . 45 . . . COMMENTS: COMMENTS: >> RESISTANCE: [facility] [address] [place] [address] PULMONARY FUNCTION MVV/REPORT Name: YUVAL REESE Room #: REG [facility] Anita.#: [id number] Admission: 07/27/20 Attend Phys: Matheus Johnson MD Discharge: Date of : [birth year] Report #: [id number] PRE-RX PRED AVG %PRED Raw Total cmH20/L/Sec . . 11.83 . Raw Insp cmH20/L/Sec . . 11.66 . Raw Exp cmH20/L/Sec . . 13.79 . Raw cmH20/L/Sec . 1.10 . 11.23 . 1018 Gaw L/Sec/cmH20 . 0.962 . 0.089 . 9 sRaw cmH20 Sec . 4.38 . 40.12 . 917 sGaw l/cmH20 Sec . 0.229 . 0.025 . 11 Vtq Liters . . 3.57 . # = OUTSIDE 95% CONFIDENCE INTERVAL CALIBRATION: PRED: 3.00 ACTUAL: EXP 3.01 INSP 3.02 [facility]-OL10-06 [facility]-05 N-1804-4 >> INTERPRETATION/IMPRESSION: CC: Gabriel Johnson DATE OF SERVICE: 07/27/2020 PULMONARY FUNCTION STUDY SPIROMETRY: FEV1 is 1.59 liters (51% predicted), FVC is 3.53 liters (80%), FEV1/FVC ratio is 45%. Post-bronchodilator therapy with no significant change. Vital capacity 3.53 liters (80%). LUNG VOLUMES: Total lung capacity is 6.13 liters (96%). RV is 2.60 liters (111). Diffusing capacity is 40%. IMPRESSION: Pulmonary function studies are consistent with a moderate severe obstructive airflow defect with no significant response to bronchodilator therapy. There is no air trapping or hyperinflation. Diffusing capacity is severely decreased. By: Matheus Johnson MD /nt
== END ==
LOC: CAT 08:27
PROVIDERS: ATTEND Pediatrics
DX: J84.10 Pulmonary fibrosis, unspecified (principal); J98.4 Other disorders of lung; R91.8 Other nonspecific abnormal finding of lung field

== ENCOUNTER → 2020-08-01 | Outpatient (CLI) | payer OTHER ==
[~2020-08-01] MED LIST changes: -COLACE100 MG PO
--- NOTE | ~2020-08-01 | PFR/MVV ---
[facility] [place] [address] PULMONARY FUNCTION MVV/REPORT Name: YUVAL REESE Room #: REG ASHLEY Troy.#: [id number] Admission: 08/01/20 Attend Phys: Matheus Johnson MD Discharge: Date of : [birth year] Report #: [id number] THIS REPORT FOR: //name// >> SPIROMETRY: (BTPS) Height: in cm Weight: lbs kg Exam Date: PRE-RX POST-RX PRED BEST %PRED BEST %PRED %CHG FVC LITERS . . . . . . FEV1 LITERS . . . . . . FEV1/FVC % . . . . . . BAI81-13% L/Sec . . . . . . PEF L/SEC . . . . . . FEF50/FIF50 UNITLESS . . . . . . MVV L/Min . . . f 1/Min . . . >> LUNG VOLUMES: (BTPS) PRE-RX POST-RX PRED AVG %PRED AVG %PRED %CHG VC Liters . . . . . . TLC Liters . . . . . . RV Liters . . . . . . RV/TLC % . . . . . . FRC PL Liters . . . . . . FRC N2 Liters . . . . . . ERV Liters . . . . . . IC Liters . . . . . . >> DIFFUSION: DLCO ml/Min/mmHg . . . . . . DL Gretchen ml/Min/mmHg . . . . . . DLCO/VA ml/Min/mmHg . . . . . . VA Liters . . . . . . COMMENTS: COMMENTS: >> RESISTANCE: [facility] [address] [place] [address] PULMONARY FUNCTION MVV/REPORT Name: YUVAL REESE Room #: REG DANN Simmons#: [id number] Admission: 08/01/20 Attend Phys: Matheus Johnson MD Discharge: Date of : [birth year] Report #: [id number] PRE-RX PRED AVG %PRED Raw Total cmH20/L/Sec . . . Raw Insp cmH20/L/Sec . . . Raw Exp cmH20/L/Sec . . . Raw cmH20/L/Sec . . . Gaw L/Sec/cmH20 . . . sRaw cmH20 Sec . . . sGaw l/cmH20 Sec . . . Vtq Liters . . . # = OUTSIDE 95% CONFIDENCE INTERVAL CALIBRATION: PRED: 3.00 ACTUAL: EXP 3.01 INSP 3.02 [facility]-OL10- [facility]-- N-1804-4 >> INTERPRETATION/IMPRESSION: CC: Gabriel Johnson MD DATE OF SERVICE: 08/01/2020 Spirometric examination reveals severe airflow obstruction. Following bronchodilators, there was no significant bronchodilator response. Possible small airways disease is suggested. Lung volumes are normal. Diffusion capacity is markedly reduced, corrected for alveolar volume, it remained moderately reduced. Flow volume loop is consistent with airflow obstruction. IMPRESSION: Severe airflow obstruction. Diffusion capacity is reduced. By: Rocky Valdivia MD /nt
== END ==
LOC: PET 12:53
PROVIDERS: ATTEND Pediatrics
DX: J43.9 Emphysema, unspecified (principal); R91.1 Solitary pulmonary nodule; M79.89 Other specified soft tissue disorders; J98.4 Other disorders of lung

== ENCOUNTER → 2020-08-16 | Outpatient (CLI) | payer OTHER ==
[2020-08-16 13:36] LABS: CREATININE 0.6 mg/dL (0.7-1.3)
== END ==
LOC: CAT 12:39
PROVIDERS: ATTEND Pediatrics
DX: R91.1 Solitary pulmonary nodule (principal); R91.8 Other nonspecific abnormal finding of lung field

== ENCOUNTER → 2020-08-24 | Outpatient (CLI) | payer OTHER ==
[~2020-08-24] MED LIST changes: +COLACE100 MG PO
== END ==
LOC: LAB 13:34
PROVIDERS: ATTEND Pediatrics
DX: Z01.812 Encounter for preprocedural laboratory examination (principal); Z20.828 Contact with and (suspected) exposure to other viral communicable diseases

== ENCOUNTER 2020-08-29 07:02 | Day surgery (SDC) | payer OTHER ==
[2020-08-29 07:30] VITALS: BP 104/62
--- NOTE | 2020-08-31 14:09 | PATH ---
[facility] [address] [place] [address] PATHOLOGY RPT PROCEDURE Name: IGOR REESE Room #: DEP [facility] M.R.#: [id number] Admission: 08/29/20 Date of : [birth year] Discharge: 08/29/20 Report #: [id number] Path Case #: [id number] LCA Accession Number: [id number] . 01 Material submitted: . lung - DANIEL TISSUE BIOPSY. Modifiers: left, upper . 01 Clinical history: . LUNG NODULE . 02 Diagnosis: Lung, left upper lobe tissue, biopsy: - Benign alveolated lung parenchyma as well as bronchial fragments. - Reactive changes along with abundant pigmented macrophages. - Negative for malignancy. . (IUV:mml; 08/31/2020) QLM 08/31/2020 1230 Local . 02 Electronically signed: . Мария Thacker MD, Pathologist NPI- [id number] . 01 Gross description: . The specimen is received in formalin, labeled "Magui, IgorDANIEL tissue biopsy" and consists of multiple fragments of askew-brown tissue measuring 0.6 x 0.5 x 0.2 cm in aggregate which are entirely submitted in A1. (SDY; 08/30/2020) SYU/SYU 08/30/2020 1533 Local . 02 Pathologist provided ICD-10: R91.1 . 02 CPT . 578114 Specimen Comment: A courtesy copy of this report has been sent to [phone] Specimen Comment: [phone] Specimen Comment: Report sent to / DR BAZAN Performed at: [address] [address], [place] [id number] MD Vick House MD Phone: [phone] Performed at: [address] [id number] MD Мария Thacker MD Phone: [phone]
--- NOTE | 2020-08-31 17:07 | PATH ---
[facility] [address] [place] [address] PATHOLOGY RPT PROCEDURE Name: YUVAL REESE Room #: DEP [facility] M.R.#: [id number] Admission: 08/29/20 Date of : [birth year] Discharge: 08/29/20 Report #: [id number] Path Case #: [id number] Note LCA Accession Number: [id number] TESTS RESULT FLAG UNITS REF RANGE LAB Clinician Provided Cytology Information No. of containers..01 Other (Miscellaneous) Source: BAL DANIEL DIAGNOSIS: BAL DANIEL NEGATIVE FOR MALIGNANT EPITHELIAL CELLS. REACTIVE BRONCHIAL CELLS ARE PRESENT. PULMONARY MACROPHAGES (DUST CELLS) ARE PRESENT. Pathologist ICD10: 02 R91.1 Signed out by: 02 Мария Thacker MD, Pathologist NPI- [id number] Performed by: 01 Lucy Ponce Rag Cutting Machine Operator ([facility]) Gross description: 01 7.5ML, PINK, 1 TP /LCS 08/30/2020 1438 Local FLAG LEGEND: L-Low Normal,H-High Normal,LL-Alert Low,HH-Alert High <-Panic Low,>-Panic High,A-Abnormal,AA-Critical Abnormal Performed at: [address] [place] [address] Vick House MD, [address] [address] Мария Thacker MD, Specimen Comment: A courtesy copy of this report has been sent to [phone] Specimen Comment: [phone] Specimen Comment: Report sent to / DR BAZAN Performed at: [address], [place], [place] [id number] MD Vick House MD Phone: [phone]
--- NOTE | 2020-08-31 17:07 | PATH ---
[facility] [address] [place] [address] PATHOLOGY RPT PROCEDURE Name: YUVAL REESE Room #: DEP [facility] M.R.#: [id number] Admission: 08/29/20 Date of : [birth year] Discharge: 08/29/20 Report #: [id number] Path Case #: [id number] Note LCA Accession Number: [id number] TESTS RESULT FLAG UNITS REF RANGE LAB Clinician Provided Cytology Information No. of containers..01 Other (Miscellaneous) Source: BRUSH TIP DANIEL DIAGNOSIS: 02 BRUSH TIP DANIEL NEGATIVE FOR MALIGNANT EPITHELIAL CELLS. REACTIVE BRONCHIAL CELLS ARE PRESENT. PULMONARY MACROPHAGES (DUST CELLS) ARE PRESENT. SPECIMEN CONSISTS OF HEMOSIDERIN-LADEN MACROPHAGES AND BLOOD. SCANT CELLULARITY. ABUNDANT RED BLOOD CELLS ARE PRESENT. Pathologist ICD10: 02 R91.1 Signed out by: 02 Мария Thacker MD, Pathologist NPI- [id number] Performed by: Jamee Ponce Pipe Installer ([facility]) Gross description: 01 1 TP /LCS 08/30/2020 1421 Local FLAG LEGEND: L-Low Normal,H-High Normal,LL-Alert Low,HH-Alert High <-Panic Low,>-Panic High,A-Abnormal,AA-Critical Abnormal Performed at: [address] [place] [address] Vick House MD, [address] [address] Мария Thacker MD, Specimen Comment: A courtesy copy of this report has been sent to [phone] Specimen Comment: [phone] Specimen Comment: Report sent to / DR BAZAN Performed at: [address], [place], [place] [id number] [address] [address] PATHOLOGY RPT PROCEDURE Name: YUVAL REESE Room #: DEP [facility] Nuvia#: [id number] Admission: 08/29/20 Date of : [birth year] Discharge: 08/29/20 Report #: [id number] Path Case #: [id number] MD Vick House MD Phone: [phone]
== END 2020-08-29 11:45 | disposition home or self-care (01) ==
LOC: TBA 07:02 → OR 07:02 → PUL 10:04 → OR 11:45
PROVIDERS: ATTEND Pediatrics
DX: R91.8 Other nonspecific abnormal finding of lung field (principal); R91.1 Solitary pulmonary nodule; E11.9 Type 2 diabetes mellitus without complications; I73.9 Peripheral vascular disease, unspecified; Z98.890 Other specified postprocedural states; Z79.899 Other long term (current) drug therapy
CPT/HCPCS: 62110; 62900; 70005

== ENCOUNTER → 2020-09-04 | Outpatient (CLI) | payer OTHER | LOC: SJCVCIMAG 07:24 | PROVIDERS: ATTEND Nuclear Medicine Nuclear Cardiology | DX: I73.9 Peripheral vascular disease, unspecified (principal); F17.200 Nicotine dependence, unspecified, uncomplicated; Z95.820 Peripheral vascular angioplasty status with implants and grafts ==

== ENCOUNTER → 2020-09-24 | Outpatient (CLI) | payer OTHER ==
[~2020-09-24] VITALS: Ht 175.3 cm; Wt 63.1 kg
[2020-09-24 13:56] VITALS: BP 103/63
== END | disposition home or self-care (01) ==
LOC: PAIN 06:53
PROVIDERS: ATTEND Anesthesiology Pain Medicine
DX: M54.16 Radiculopathy, lumbar region (principal); G89.29 Other chronic pain; I10 Essential (primary) hypertension; E11.9 Type 2 diabetes mellitus without complications; F17.210 Nicotine dependence, cigarettes, uncomplicated; Z98.890 Other specified postprocedural states; Z79.899 Other long term (current) drug therapy

== ENCOUNTER → 2020-10-17 | Outpatient (CLI) | payer OTHER ==
[2020-10-17 14:06] LABS: CREATININE 0.7 mg/dL (0.7-1.3)
== END ==
LOC: LAB 12:58 → MRI 12:58
PROVIDERS: ATTEND Nurse Practitioner
DX: Z01.812 Encounter for preprocedural laboratory examination (principal); R19.00 Intra-abdominal and pelvic swelling, mass and lump, unspecified site

== ENCOUNTER → 2020-10-18 | Outpatient (CLI) | payer OTHER | LOC: MRI 13:20 | PROVIDERS: ATTEND Nurse Practitioner | DX: R59.0 Localized enlarged lymph nodes (principal); K22.8 Other specified diseases of esophagus; M79.89 Other specified soft tissue disorders; Z90.49 Acquired absence of other specified parts of digestive tract; Z98.890 Other specified postprocedural states ==

== ENCOUNTER → 2020-11-15 | Outpatient (CLI) | payer OTHER ==
[~2020-11-15] VITALS: Ht 175.3 cm; Wt 59.0 kg
[2020-11-15 09:40] LABS: ABSOLUTE NEUTROPHILS 6.5 thou/uL (1.4-8.2); BASOPHILS 0.6 % (0.0-2.0); EOSINOPHILS 1.5 % (0.0-3.0); HEMATOCRIT 46.8 % (42.0-52.0); HEMOGLOBIN 15.6 gm/dL (14.0-18.0); LYMPHOCYTES 29.2 % (24.0-44.0); MCH 28.4 pg (26.0-34.0); MCHC 33.4 g/dL (28.0-37.0); MCV 85.1 fL (80.0-100.0); MONOCYTES 9.2 % (1.0-8.0); PLATELET COUNT 256 thou/uL (150-400); POLYS 59.5 % (36.0-66.0); RDW 14.3 % (10.5-14.5)
[2020-11-15 09:57] LABS: ALBUMIN 3.5 g/dL (3.4-5.0); CALCIUM 9.6 mg/dL (8.5-10.1); CREATININE 0.7 mg/dL (0.7-1.3); DIRECT BILIRUBIN 0.2 mg/dL (<0.1-0.2); POTASSIUM 4.4 mmol/L (3.5-5.1); TOTAL BILIRUBIN 0.4 mg/dL (0.2-1.0); TOTAL PROTEIN 7.7 g/dL (6.4-8.2)
[2020-11-15 09:58] LABS: APTT 31.3 Seconds (24.5-32.8); INR 1.4; PROTIME 14.4 Seconds (9.3-11.4)
[2020-11-15 10:25] VITALS: BP 117/66
--- NOTE | 2020-11-15 13:24 | NUR ---
PORTABLE CHEST XRAY DONE.
[2020-11-15 14:26] VITALS: BP 135/68
--- NOTE | 2020-11-20 16:06 | PATH ---
[facility] [address] [place] [address] PATHOLOGY RPT PROCEDURE Name: YUVAL REESE Room #: REG DANN MIsabel.#: [id number] Admission: 11/15/20 Date of : [birth year] Discharge: Report #: [id number] Path Case #: [id number] LCA Accession Number: [id number] . 01 Material submitted: . lung - LUNG BIOPSY . 02 Diagnosis: Lung, "nodule", needle core biopsy: - Rare non-necrotizing granulomata identified amidst lymph node tissue with reactive changes. - No lung parenchyma/alveolar parenchyma or bronchial epithelium present. LBQ 11/19/2020 1146 Local . 02 Comment: AFB and GMS fungal special stains are ordered on block A1 and the results of these will be reported in an addendum to follow. (IUV/db; 11/19/2020) . 02 Addendum: . Acid fast bacillus and Gomori methenamine silver stains performed on A1 are negative for mycobacterial as well as fungal elements, respectively. (IUV:pit 11/20/2020) . Professional services performed by [facility] at [facility], [address] [place] [address]. Technical services performed by [facility] at [address] [place] [address], [address], [place] [address]. MBR/11/20/2020 Addendum Electronically Signed by Мария Thacker MD, Pathologist . 02 Electronically signed: . Мария Thacker MD, Pathologist NPI- [id number] . 01 Gross description: . The specimen is received in formalin, labeled "Yuval Reese". The container is not labeled with the specimen site. Per the requisition, the specimen site is "lung biopsy". Received are 3 delicate needle cores of askew tissue measuring between 0.7 cm and 1.2 cm in length and 0.1 cm each in diameter which are entirely submitted in A1. (SDY; 11/16/2020) SYU/SYU 11/16/2020 132 Local . 02 Pathologist provided ICD-10: R91.1 . 02 CPT . [facility] [address] [place] [address] PATHOLOGY RPT PROCEDURE Name: YUVAL REESE Room #: REG CLI Nuvia#: [id number] Admission: 11/15/20 Date of : [birth year] Discharge: Report #: [id number] Path Case #: [id number] Specimen Comment: A courtesy copy of this report has been sent to [phone] Specimen Comment: [phone] Specimen Comment: Report sent to / DR BAZAN Specimen Comment: A duplicate report has been generated due to demographic updates. Performed at: 01 [facility] [address] [address], [place] [id number] MD Arpan Henderson MD Phone: [phone] Performed at: [address] [facility] [address] [id number] MD Мария Thacker MD Phone: [phone]
== END | disposition home or self-care (01) ==
LOC: ULTRA 09:03
PROVIDERS: ATTEND Family Medicine
DX: R59.0 Localized enlarged lymph nodes (principal); F41.9 Anxiety disorder, unspecified; J44.9 Chronic obstructive pulmonary disease, unspecified; E11.9 Type 2 diabetes mellitus without complications; I25.10 Atherosclerotic heart disease of native coronary artery without angina pectoris; K21.9 Gastro-esophageal reflux disease without esophagitis; E78.5 Hyperlipidemia, unspecified; G47.33 Obstructive sleep apnea (adult) (pediatric); B19.20 Unspecified viral hepatitis C without hepatic coma; N40.0 Benign prostatic hyperplasia without lower urinary tract symptoms; F17.210 Nicotine dependence, cigarettes, uncomplicated; Z83.3 Family history of diabetes mellitus; Z98.890 Other specified postprocedural states; Z79.899 Other long term (current) drug therapy

== ENCOUNTER → 2021-01-28 | Outpatient (CLI) | payer OTHER ==
[~2021-01-28] MED LIST changes: +CHANTIX1 EACH PO; +NORCO7.5 PO; +SINGULAIR 10 MG10 M1 PO
== END ==
LOC: LAB 12:14
PROVIDERS: ATTEND Student in an Organized Health Care Education/Training Program
DX: Z01.812 Encounter for preprocedural laboratory examination (principal); Z20.822 Contact with and (suspected) exposure to COVID-19

== ENCOUNTER → 2021-02-28 | Outpatient (CLI) | payer OTHER | LOC: RAD 13:29 | PROVIDERS: ATTEND Pediatrics | DX: J43.9 Emphysema, unspecified (principal); R91.8 Other nonspecific abnormal finding of lung field; J84.10 Pulmonary fibrosis, unspecified ==

== ENCOUNTER → 2021-05-28 | Outpatient (CLI) | payer OTHER | LOC: SJCVCIMAG 07:18 | PROVIDERS: ATTEND Nuclear Medicine Nuclear Cardiology | DX: I70.201 Unspecified atherosclerosis of native arteries of extremities, right leg (principal); M79.661 Pain in right lower leg; M79.662 Pain in left lower leg ==

== ENCOUNTER → 2021-05-29 | Outpatient (CLI) | payer OTHER ==
[~2021-05-29] VITALS: Ht 175.3 cm; Wt 59.9 kg
[2021-05-29 11:21] VITALS: BP 114/68
[2021-05-29 11:30] LABS: HEMATOCRIT 42.5 % (42.0-52.0); HEMOGLOBIN 14.4 gm/dL (14.0-18.0); MCHC 33.9 g/dL (28.0-37.0); MCV 85.5 fL (80.0-100.0); RBC 4.97 mil/uL (4.50-6.00); RDW 14.2 % (10.5-14.5); WBC 6.3 thou/uL (4.0-11.0)
[2021-05-29 11:36] LABS: CALCIUM 8.7 mg/dL (8.5-10.1); CREATININE 0.7 mg/dL (0.7-1.3); POTASSIUM 3.5 mmol/L (3.5-5.1)
== END | disposition home or self-care (01) ==
LOC: CATH 06:21
PROVIDERS: ATTEND Nuclear Medicine Nuclear Cardiology
DX: I70.211 Atherosclerosis of native arteries of extremities with intermittent claudication, right leg (principal); I70.1 Atherosclerosis of renal artery; I10 Essential (primary) hypertension; I25.10 Atherosclerotic heart disease of native coronary artery without angina pectoris; E11.9 Type 2 diabetes mellitus without complications; J44.9 Chronic obstructive pulmonary disease, unspecified; K21.9 Gastro-esophageal reflux disease without esophagitis; F17.210 Nicotine dependence, cigarettes, uncomplicated; Z98.890 Other specified postprocedural states; Z79.899 Other long term (current) drug therapy; Z90.49 Acquired absence of other specified parts of digestive tract

== ENCOUNTER → 2021-08-02 | Outpatient (CLI) | payer OTHER | LOC: CAT 10:16 | PROVIDERS: ATTEND Pediatrics | DX: J43.8 Other emphysema (principal); J98.4 Other disorders of lung; J84.10 Pulmonary fibrosis, unspecified; R91.8 Other nonspecific abnormal finding of lung field; N62 Hypertrophy of breast; K76.0 Fatty (change of) liver, not elsewhere classified; Z90.49 Acquired absence of other specified parts of digestive tract ==

== ENCOUNTER → 2021-08-12 | Outpatient (CLI) | payer OTHER ==
[~2021-08-12] VITALS: Ht 175.3 cm; Wt 59.5 kg
[~2021-08-12] MED LIST changes: +HYDROCODON-ACE1 EAC5 PO; +METFORMIN HCL1000 M1 PO; +VIAGRA100 MG PO
[2021-08-12 14:12] VITALS: BP 125/69
--- NOTE | 2021-08-12 14:37 | NUR ---
Pain Clinic Assessment: 1. History of Osteoarthritis: Not Applicable History of Rheumatoid Arthritis: Not Applicable 2. Height: 5 ft. 9 in. 175.3 cm. Weight: 131.2 lb. oz. 59.512 kg. Patient's BMI: 19.4 3. Vital Signs: BP: 125/69 Pulse: 79 Resp: 14 Temp: 02 Sat: 100 ECG Mon: 4. Pain Intensity: 4 5. Fall Risk: Dizziness: N Needs help standing or walking: N Fallen in the last 3 months: N Fall risk comments: 6. Patient on Blood Thinner: Clopidogrel Bisulf(Plavix 7. History of Hypertension: Y 8. Opioid Therapy greater than 6 weeks: Y Opiate Contract Signed: 9. Risk Assessment Tool Provided: 4-MODERATE RISK 10. Functional Assessment Tool: 54/70 11. Recreational Drug Use: Never Drug Type: Tobacco Use: Current Every Day Smoker Tobacco Type: Cigarettes Amount or Packs/day: 3/4 PACK How Many Years: Alcohol Use: No Frequency: Quant:
== END ==
LOC: PAIN 11:04
PROVIDERS: ATTEND Anesthesiology Pain Medicine
DX: M54.6 Pain in thoracic spine (principal); Z98.890 Other specified postprocedural states; Z79.899 Other long term (current) drug therapy

== ENCOUNTER → 2021-08-28 | Outpatient (CLI) | payer OTHER ==
[~2021-08-28] MED LIST changes: +APAP W/CODEINE1 TA2 PO
== END ==
LOC: MRI 08-15 10:30
PROVIDERS: ATTEND Family Medicine
DX: M51.24 Other intervertebral disc displacement, thoracic region (principal); M50.21 Other cervical disc displacement, high cervical region; M48.04 Spinal stenosis, thoracic region

== ENCOUNTER → 2021-08-28 | Outpatient (CLI) | payer OTHER ==
[~2021-08-28] MED LIST changes: -APAP W/CODEINE1 TA2 PO
== END ==
LOC: SJCVCIMAG 08-21 08:23
PROVIDERS: ATTEND Nuclear Medicine Nuclear Cardiology
DX: M51.24 Other intervertebral disc displacement, thoracic region (principal); M50.223 Other cervical disc displacement at C6-C7 level; I70.202 Unspecified atherosclerosis of native arteries of extremities, left leg; M79.605 Pain in left leg; Z95.810 Presence of automatic (implantable) cardiac defibrillator

== ENCOUNTER → 2021-09-02 | Outpatient (CLI) | payer OTHER ==
[~2021-09-02] VITALS: Ht 175.3 cm; Wt 60.4 kg
[2021-09-02 14:36] VITALS: BP 119/77
--- NOTE | 2021-09-02 15:01 | NUR ---
Pain Clinic Assessment: 1. History of Osteoarthritis: Not Applicable History of Rheumatoid Arthritis: Not Applicable 2. Height: 5 ft. 9 in. 175.3 cm. Weight: 133.2 lb. oz. 60.419 kg. Patient's BMI: 19.7 3. Vital Signs: BP: 119/77 Pulse: 75 Resp: 14 Temp: 02 Sat: 98 ECG Mon: 4. Pain Intensity: 8 thoracic,shoulder 4-5 5. Fall Risk: Dizziness: N Needs help standing or walking: N Fallen in the last 3 months: N Fall risk comments: 6. Patient on Blood Thinner: Clopidogrel Bisulf(Plavix 7. History of Hypertension: Y 8. Opioid Therapy greater than 6 weeks: Y Opiate Contract Signed: 9. Risk Assessment Tool Provided: 4-MODERATE RISK 10. Functional Assessment Tool: 54/70 11. Recreational Drug Use: Never Drug Type: Tobacco Use: Current Every Day Smoker Tobacco Type: Cigarettes Amount or Packs/day: How Many Years: Alcohol Use: No Frequency: Quant:
== END ==
LOC: PAIN 10:23
PROVIDERS: ATTEND Anesthesiology Pain Medicine
DX: G89.29 Other chronic pain (principal); M54.14 Radiculopathy, thoracic region; M54.6 Pain in thoracic spine; M54.50 Low back pain, unspecified; Z79.899 Other long term (current) drug therapy

== ENCOUNTER 2021-09-09 19:20 | Emergency (ER) | payer OTHER ==
[~2021-09-09] VITALS: Ht 177.8 cm; Wt 61.2 kg
[2021-09-09 19:56] LABS: ABSOLUTE NEUTROPHILS 4.3 thou/uL (1.4-8.2); BASOPHILS 0.8 % (0.0-2.0); EOSINOPHILS 2.5 % (0.0-3.0); HEMATOCRIT 40.7 % (42.0-52.0); HEMOGLOBIN 13.7 gm/dL (14.0-18.0); LYMPHOCYTES 32.9 % (24.0-44.0); MCH 29.1 pg (26.0-34.0); MCHC 33.6 g/dL (28.0-37.0); MCV 86.7 fL (80.0-100.0); MONOCYTES 10.1 % (1.0-8.0); PLATELET COUNT 218 thou/uL (150-400); POLYS 53.7 % (36.0-66.0); RBC 4.69 mil/uL (4.50-6.00); RDW 13.4 % (10.5-14.5)
[2021-09-09 20:02] LABS: CALCIUM 8.8 mg/dL (8.5-10.1); CREATININE 0.7 mg/dL (0.7-1.3); POTASSIUM 3.9 mmol/L (3.5-5.1)
[2021-09-09] MEDS ORDERED: APAP W/CODEINE1 TA2 PO (20:21)
[2021-09-09 20:34] VITALS: BP 137/76
--- NOTE | 2021-09-10 07:30 | EKG ---
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 Operator: JUAN J : 1956-08-30 Requested By: Eliezer Hercules Order Number: [id number] MD: Marlon Bautista Measurements Intervals [place] Rate: 75 P: 87 MA: 176 QRS: 43 QRSD: 97 T: 68 QT: 371 QTc: 415 Interpretive Statements Sinus rhythm Probable left atrial enlargement S1,S2,S3 pattern Baseline wander in lead(s) V5 Compared to ECG 07/09/2020 17:28:07 No significant changes Electronically Signed On 09-10-2021 7:30:14 CDT by Marlon Bautista [email or web address] <ELECTRONICALLY SIGNED> By: Marlon Bautista MD, [facility] 09/10/21729 28 28 Marlon Bautista MD, FACC /EPI
== END 2021-09-09 20:55 | disposition home or self-care (01) ==
LOC: ER 19:20
PROVIDERS: Emergency Medicine
DX: R07.89 Other chest pain (principal); I25.10 Atherosclerotic heart disease of native coronary artery without angina pectoris; K21.9 Gastro-esophageal reflux disease without esophagitis; J44.9 Chronic obstructive pulmonary disease, unspecified; E11.9 Type 2 diabetes mellitus without complications; F17.210 Nicotine dependence, cigarettes, uncomplicated; Z98.890 Other specified postprocedural states; Z79.84 Long term (current) use of oral hypoglycemic drugs; Z79.1 Long term (current) use of non-steroidal anti-inflammatories (NSAID); Z79.891 Long term (current) use of opiate analgesic; Z79.899 Other long term (current) drug therapy

== ENCOUNTER → 2021-09-16 | Outpatient (CLI) | payer OTHER ==
[~2021-09-16] VITALS: Ht 175.3 cm; Wt 60.8 kg
[~2021-09-16] MED LIST changes: +APAP W/CODEINE1 TA2 PO
[2021-09-16 10:48] VITALS: BP 123/73
--- NOTE | 2021-09-16 11:02 | NUR ---
Pain Clinic Assessment: 1. History of Osteoarthritis: Not Applicable History of Rheumatoid Arthritis: Not Applicable 2. Height: 5 ft. 9 in. 175.3 cm. Weight: 134.0 lb. oz. 60.782 kg. Patient's BMI: 19.8 3. Vital Signs: BP: 123/73 Pulse: 72 Resp: 14 Temp: 02 Sat: 97 ECG Mon: 4. Pain Intensity: 6 thoracic,shoulder 6 5. Fall Risk: Dizziness: N Needs help standing or walking: N Fallen in the last 3 months: N Fall risk comments: 6. Patient on Blood Thinner: Clopidogrel Bisulf(Plavix 7. History of Hypertension: Y 8. Opioid Therapy greater than 6 weeks: Y Opiate Contract Signed: 9. Risk Assessment Tool Provided: 4-MODERATE RISK 10. Functional Assessment Tool: /70 11. Recreational Drug Use: Never Drug Type: Tobacco Use: Current Every Day Smoker Tobacco Type: Cigarettes Amount or Packs/day: 3/4 PK/D How Many Years: Alcohol Use: No Frequency: Quant:
== END | disposition home or self-care (01) ==
LOC: PAIN 09-09 10:02
PROVIDERS: ATTEND Anesthesiology Pain Medicine
DX: M54.14 Radiculopathy, thoracic region (principal); G89.29 Other chronic pain; E11.9 Type 2 diabetes mellitus without complications; F17.210 Nicotine dependence, cigarettes, uncomplicated; Z98.890 Other specified postprocedural states; Z79.899 Other long term (current) drug therapy; Z20.822 Contact with and (suspected) exposure to COVID-19

== ENCOUNTER → 2021-11-15 | Outpatient (CLI) | payer OTHER | LOC: SJCVCIMAG 07:26 | PROVIDERS: ATTEND Nuclear Medicine Nuclear Cardiology | DX: I73.9 Peripheral vascular disease, unspecified (principal); M79.605 Pain in left leg; M79.604 Pain in right leg; I25.10 Atherosclerotic heart disease of native coronary artery without angina pectoris; J44.9 Chronic obstructive pulmonary disease, unspecified; K21.9 Gastro-esophageal reflux disease without esophagitis; E78.5 Hyperlipidemia, unspecified; G47.33 Obstructive sleep apnea (adult) (pediatric); F41.9 Anxiety disorder, unspecified; J45.909 Unspecified asthma, uncomplicated; F32.9 Major depressive disorder, single episode, unspecified; E11.9 Type 2 diabetes mellitus without complications; F17.210 Nicotine dependence, cigarettes, uncomplicated; Z79.899 Other long term (current) drug therapy ==